=== PATIENT | female | born 2000 | race Caucasian/White ===

== ENCOUNTER 2025-06-14 16:20 | Emergency (ER) | payer OTHER ==
[2025-06-14 16:26] VITALS: BP 130/78; PULSE 85; RESP 20; TEMP 98.4; BMI 28.3
[2025-06-14 17:18] LABS: ABSOLUTE IMMATURE GRANULOCYTES 0.07 x10^3/uL (0.0-0.031); BASOPHILS # 0.04 x10^3/uL (0.01-0.08); EOSINOPHIL % 0.5 % (0.7-5.8); EOSINOPHILS # 0.05 x10^3/uL (0.04-0.36); MCHC 32.4 g/dl (32.2-35.5); MEAN CELL VOLUME 82.7 fl (79.4-94.8); MEAN PLT VOLUME 10.4 fl (9.4-12.3); MONOCYTE # 0.56 x10^3/uL (0.24-0.86); MONOCYTE % 5.7 % (4.7-12.5); RDW 13.6 % (12.1-16.5)
[2025-06-14 17:51] LABS: GLUCOSE,RANDOM 109.0 mg/dL (74-106); TOT PROT 8.0 g/dl (6.4-8.2)
[2025-06-14 17:52] LABS: CO2 22.0 mmol/L (21-32)
[2025-06-14 17:54] LABS: ALK PHOS 49.0 U/L (40-150)
[2025-06-14 17:57] LABS: CREATININE 0.51 mg/dL (0.55-1.3); SGOT/AST 27.0 U/L (5-34); SGPT/ALT 51.0 U/L (0-55)
[2025-06-14 18:16] LABS: HCV DIAGNOSTIC IN-HOUSE W/RFLX NON-REACTIVE (NONREACTIVE); HIV INTERPRETATION NEGATIVE (NEGATIVE)
[2025-06-14 19:44] LABS: URINE APPEARANCE CLEAR; URINE BILIRUBIN NEGATIVE (NEGATIVE); URINE COLOR YELLOW; URINE GLUCOSE (UA) NEGATIVE (NEGATIVE); URINE KETONE 1+ (NEGATIVE); URINE LEUK ESTERASE NEGATIVE (NEGATIVE); URINE NITRITE NEGATIVE (NEGATIVE); URINE PROTEIN TRACE (NEGATIVE); URINE UROBILINOGEN 1.0 mg/dL (0.2-1.0)
== END 2025-06-14 22:19 | disposition home or self-care (01) ==
LOC: JER 16:20
DX: O26.891 Other specified pregnancy related conditions, first trimester (principal); R10.31 Right lower quadrant pain; R10.32 Left lower quadrant pain; Z3A.01 Less than 8 weeks gestation of pregnancy
CPT/HCPCS: 36415; 76817-TC; 80053; 81003; 84702; 84703; 85025; 86803; 86850; 86900; 86901; 87086; 87389; 99284-25